=== PATIENT | male | born 1935 | race Caucasian/White ===

== ENCOUNTER 2016-05-08 07:05 | Inpatient (IN) | payer MEDICARE ==
--- NOTE | 2016-05-02 18:09 | Rehab Joint Replacement Pre-Op ---
Rehab Joint Replacement Pre-Op - Pre-Op Visit Reviewed Items Scheduled for Post Op Visit: Yes Scheduled Post Op Visit Date: 05/09/16 (Pt. expresses willingness to be a swingbed pt.) Pre-Op Visit Comment: Pt. reports history of low back pain and spinal stimulator. Pt. has had multiple knee scopes and injections. Pt. lives in a single story home with three steps leading in and hand rails on both sides. Pt. has a walk in shower and grab bar in the bathroom. Pt. has a single point cane and expresses that he wants to borrow a walker from a friend. Pt. lives with who is able to provide support. David Hose/Garment Measurement TKR - Knee High: Yes (David Hose measurements recorded on intake form, please see form for measurements.) Exercise Reviewed: Yes (Pt. was instructed to perform ankle pumps, quad sets, glute sets, heel slides, and hamstring stretches, both post and pre-operatively. ) Stair Climbing: Yes (Pt. was instructed on walker positioning and use when ascending and descending stairs.) Cane/Walker/Crutch Training: Yes (Pt. was shown how to ambulate with single point cane.) Vend Equipment - Cane or Walker and OT Kit: N/A List of Venders in the Area: Yes Shower Chair Transfers: Yes Car Transfers: Yes Bed Transfers: Yes Medical History Forms Issued: No Functional Scale Forms Issued: No
[~2016-05-08 07:05] MED LIST: ACETAMINOPHEN 1000MG/100 ML PREMIX IV ONE; FAMOTIDINE 20MG TABLET PO ONE; MECLIZINE 25 MG TABLET PO ONE; METOCLOPRAMIDE 10 MG TABLET PO ONE; VANCOMYCIN HCL 1,000 MG in 0.9 % SODIUM CHLORIDE 250ML 250 ML IVPB ONE
[2016-05-08] MEDS ORDERED: DIPHENHYDRAMINE HCL 25 MG CAPSULE PO PRN (11:30)
[2016-05-08] MEDS ORDERED: METOCLOPRAMIDE HCL 10 MG/2 ML VIAL IVP PRN (11:30)
[2016-05-08] MEDS ORDERED: ZOLPIDEM TARTRATE 5 MG TABLET PO PRN (11:30)
[2016-05-08] MEDS ORDERED: AL HYDROX/MAG HYDROX 30ML UD PO PRN (11:30)
[2016-05-08] MEDS ORDERED: TRAMADOL HCL 50 MG TABLET PO PRN ×2 (11:30)
[2016-05-08] MEDS ORDERED: ONDANSETRON HCL IV 4 MG/2 ML VIAL IVP PRN (11:30)
[2016-05-08] MEDS ORDERED: MAGNESIUM HYDROXIDE 30 ML UDC PO PRN (11:30)
[2016-05-08] MEDS ORDERED: OXYCODONE HCL 5 MG TABLET PO PRN (11:30)
[2016-05-08] MEDS ORDERED: HYDROMORPHONE HCL 1 MG/ML CPJ IVP PRN (11:30)
[2016-05-08] MEDS: RINGERS SOLUTION,LACTATED 1,000 ML IV SCH ×2 (12:26→20:56)
[2016-05-08] MEDS ORDERED: TRANEXAMIC ACID 1,000 MG in 0.9 % SODIUM CHLORIDE 100ML 100 ML IVPB ONE (13:00)
[2016-05-08] MEDS: ACETAMINOPHEN 1,000 MG/ 100 ML IV SCH ×4 (14:11→20:43)
[2016-05-08] MEDS ORDERED: ALPRAZOLAM 0.25 MG TABLET PO PRN ×2 (14:15→14:16)
[2016-05-08] MEDS ORDERED: BUPIVACAINE 0.25% W/EPI MPF 30ML VIAL IVP ONE (14:23)
[2016-05-08] MEDS ORDERED: ONDANSETRON HCL IV 4 MG/2 ML VIAL IVP ONE (14:23)
[2016-05-08] MEDS ORDERED: BUPIVACAINE LIPOSOME 266MG/20ML VIAL IV ONE (14:23)
[2016-05-08] MEDS ORDERED: HYDROMORPHONE HCL 2 MG/ML VIAL IV ONE ×2 (14:23→15:46)
[2016-05-08] MEDS ORDERED: TRANEXAMIC ACID 1,000 MG/10 ML ML IV ONE (14:23)
[2016-05-08] MEDS ORDERED: LIDOCAINE 2% MDV (20MG/ML) 20ML VIAL IV ONE (15:46)
[2016-05-08] MEDS ORDERED: SEVOFLURANE 250 ML INH ONE (15:46)
[2016-05-08] MEDS ORDERED: PROPOFOL 10 MG/ML VIAL IV ONE (15:46)
--- NOTE | 2016-05-08 16:15 | Rehab Evaluation ---
Patient Information - Patient Information Diagnosis: Right knee OA Ordered Treatment: PT Evaluate and Treat Status: Initial Evaluation Surgery: Yes (R knee TKA) Date of Surgery: 05/08/16 History: Detail (Pt. has a long history of knee pain/wear and tear. Pt. has a history of low back pain and has a spinal stimulator. Pt. believes his left knee is due for surgery soon.) Past Med/Eddie Hx Detail: Detail (Pt. has history of cardiac complication and back surgery, please see additional medical intake forms.) Past Medical/Surgical Hx: PAST MEDICAL/SURGICAL HISTORY Surgery to Affected Area? Yes Recent Surgery? Past Surgical History appy age 3; lysis of adhesions 1968 back x 2; aortic aneurysm 2003 and 2007; bilat cataract sx; rhizotomies; bilat knee scopes, SCS implant back injections; bilat knee scope; spinal cord stimulator implant PMH - Respiratory Hx Respiratory Disorders Yes Hx Bronchitis Yes: yrly PMH - Cardiovascular Hx Cardiovascular Disorders Yes Hx Hypertension Yes: great control Exercise Tolerance Fair Hx of Migraines Yes: X1 years ago Comment: Limited exercise R/T knee;aortic aneurysm repair x's 2 checked every year PMH - Neuro Hx Neurological Disorders No PMH - GI Hx Gastrointestinal Disorders No Hx Weight Loss/Weight Gain Yes: down 25# over 1 year purpusefully PMH - Hx Genitourinary Disorders Yes Hx Bladder Problem Yes: frequency PMH - Endocrine Hx Endocrine Disorders No PMH - Musculoskeletal Hx Musculoskeletal Disorders Yes Hx Arthritis Yes: Osteoarthritis knees, hand and spine Hx Back Injury Yes: age 20 PMH - Psych Hx Psychiatric Problems No PMH - Hematology/Oncology Hx Hematology/Oncology Yes Disorders Hx Bruising Yes: Hx of low platelets 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 lives in a single story home and has three steps leading in and hand rails on both sides. Pt. has a walk in shower and grab bar in the bathroom. Pt. has a front wheeled walker and single point cane. Pt. lives with his who is able to provide support.) Precautions: Tiger, Fall - Time With Patient Total Time Spent With Patient (Min): 50 Treatment Procedures: Detail (Physical Therapy Evaluation Completed. Pt. was left supine with call light available, B IPC, CPM RLE, 4L O2 via nasal canula, and nursing was notified of pt.'s status. Pt. reported pain decrease from 6/10 to 4/10 from start to finish of evaluation.) Subjective Information - Subjective Information Per Patient (Pt. denied SOB, nausea, or feelings of irritability.) Objective Data - Pain Pain Present: Yes Pain Intensity: 6 Pain Scale Used: Numeric (1 - 10) (6/10 VAS) - Mental Status Patient Orientation: Oriented x3 - Visual Perception Appears within normal limits for therapeutic activities - ROM Other (Right knee flexion and extension set at 0 degrees extension and 60 degrees flexion via CPM.) - Strength/Tone Within normal limits (RLE not tested for break testing due to recent surgery. LLE and BUE within functional limits.) - Coordination Appears within normal limits for therapeutic activities - Bed Mobility Needs Assist (Pt. required min assist x1 for bed mobility and positioning to head of bed. PT lifted pt.'s RLE due to pt. inability to perform SLR.) - Transfers Needs Assist (Pt. required min assist x2 with sit to stand and stand to sit transfer. Pt. demonstrated good positioning of the operative LE and hand placement with AD.) - Balance Balance Sitting: Good Balance Standing: Fair (Pt. stood in the bathroom for ~10 minutes with CGA and maintained midline orientation with AD, but easily lost balance with perturbation testing in all directions.) - Sensation Intact - Gait Detail (Pt. ambulated ~10 feet with front wheeled walker and PT provided CGA x1. ) - ADL's/IADL's Detail (Not assessed.) - Special Tests No Therapy Assessment - Therapy Assessment Detail (Pt. presents with LE weakness, LE ROM restriction, antalgic gait, and standing balance impairment secondary to TKA.) Patient Education - Patient Education Teaching Topic: Community Resources, Discharge Instructions (Pt. was instructed on D/C planning and appropriateness for return to home environment versus subacute stay and medical necessity.), Disease Process Response: Verbalize Understanding Teaching Method: Discussion Teaching Recipient: Patient, Family Barriers To Learning: None Problem List - Problem List Physical Therapy Problem List: Detail (1) LE weakness 2) LE ROM impairment 3) Standing balance impairment 4) Antalgic gait 5) Community ambulation not assessed due to pain) Occupational Therapy Problem List: Detail Goals - Goals Physical Therapy Goals: 1) Pt. will ambulate community distances independently with AD for safe ambulation. 2) Pt. will be independent with bed mobility and transfers. 3) Pt. will independently ascend and descend three steps with AD for safe ambulation. 4) Pt. will be independent with home exercise program. 5 ) Pt. will verbalize understanding of precautions and signs of infection. Prognosis - Prognosis Good (Pt. is expected to meet all inpatient goals and return to home environment unless pt. is not found to be medically stable or pain limits his function.) Plan - Plan Physical Therapy Plan: Pt. will be seen 1-2x per day for inpatient PT, starting on date 05-09-16.
[2016-05-08] MEDS: OXYCODONE HCL 5 MG TABLET PO PRN ×2 (17:55→22:00)
[2016-05-08] MEDS ORDERED: VANCOMYCIN HCL 1,000 MG in 0.9 % SODIUM CHLORIDE 250ML 250 ML IVPB ONE (20:20)
[2016-05-08] MEDS: ASPIRIN 325 MG TAB ENTERIC-COATED PO SCH (22:01)
[2016-05-09] MEDS: ACETAMINOPHEN 1,000 MG/ 100 ML IV SCH ×2 (02:29)
[2016-05-09] MEDS: OXYCODONE HCL 5 MG TABLET PO PRN (02:34)
[2016-05-09] MEDS: RINGERS SOLUTION,LACTATED 1,000 ML IV SCH (05:58)
[2016-05-09 06:42] LABS: HEMATOCRIT 40.3 % (42.0-52.0); HEMOGLOBIN 13.2 gm/dl (14.0-18.0); MEAN CELL VOLUME 93.5 fl (81-97); MEAN CORPUSCULAR HEMOGLOBIN 30.6 pg (27-33); MEAN CORPUSCULAR HGB CONC 32.8 g/dl (32-36); MEAN PLATELET VOLUME 12.4 fl (7.4-10.4); PLATELET COUNT 103 K/uL (130-400); RED BLOOD COUNT 4.31 M/uL (4.40-5.70); RED CELL DISTRIBUTION WIDTH 13.7 % (11.5-14.5); WHITE BLOOD COUNT W/O DIFF 7.5 K/uL (4.2-12.2)
[2016-05-09 06:44] LABS: INR 1.03; PROTHROMBIN TIME (PATIENT) 11.6 SECONDS (9.5-12.1)
[2016-05-09] MEDS ORDERED: OXYCODONE/APAP 7.5MG/325MG TABLET PO PRN ×2 (11:30)
[2016-05-09] MEDS ORDERED: HYDROCODONE/APAP 7.5/325MG TABLET PO PRN (11:30)
[2016-05-09] MEDS ORDERED: ACETAMINOPHEN 325 MG TAB PO PRN (11:30)
--- NOTE | 2016-05-09 11:42 | Physical Therapy Tx Note ---
Physical Therapy Tx Note - Treatment Note Tolerated: Good Total Time Spent With Patient: 45 Physical Therapy Tx Note: Detail (Pt up in chair upon arrival; present in room. Approached by re: transition to Swing Bed program, qualifications, requirements, etc. Referred to case management; she spoke w/nrsg to have manager of case come to pt's room when on unit. Pt applied spinal stimulator for therapeutic activities. Pt transferred sit/stand to front-wheeled walker w/SBA , ambulated out in hallway and returned to room (about 76 feet), w/CGA. VCs to extend R LE w/resuming sitting in chair. Performed 2 minutes of heel slides, 10 reps each of ankle pumps, LAQ, isometric hamstrings, seated marching, gluteal sets. Applied PolarPak to R knee, asked family to ensure that call light is within reach of patient if they leave the room. Encouraged patient to sit up through lunch, then rest before afternoon therapy session. Nrsg notified. Spoke w/KEL (manager of case) regarding pt's performance, pt's 's questions re: swing bed program. She will communicate w/therapy after afternoon session to determine how to proceed.) Physical Therapy Problem List: Detail (1) LE weakness 2) LE ROM impairment 3) Standing balance impairment 4) Antalgic gait 5) Community ambulation not assessed due to pain) Physical Therapy Goals: 1) Pt. will ambulate community distances independently with AD for safe ambulation. 2) Pt. will be independent with bed mobility and transfers. 3) Pt. will independently ascend and descend three steps with AD for safe ambulation. 4) Pt. will be independent with home exercise program. 5 ) Pt. will verbalize understanding of precautions and signs of infection. Prognosis: Good Physical Therapy Plan: Pt. will be seen 1-2x per day for inpatient PT, starting on date 05-09-16.
[2016-05-09] MEDS: HYDROCODONE/APAP 7.5/325MG TABLET PO PRN ×2 (12:39→17:51)
[2016-05-09] MEDS: SENNOSIDES/DOCUSATE SODIUM UD CAPSULE PO PRN (12:40)
[2016-05-09] MEDS: ASPIRIN 325 MG TAB ENTERIC-COATED PO SCH ×2 (12:41→22:50)
[2016-05-09] MEDS: HYDROCHLOROTHIAZIDE 12.5 MG CAPSULE PO SCH (12:41)
[2016-05-09] MEDS: LOSARTAN POTASSIUM 25 MG TABLET PO SCH (13:54)
--- NOTE | 2016-05-09 15:11 | Physical Therapy Tx Note ---
Physical Therapy Tx Note - Treatment Note Tolerated: Good (Patient doing much better: has low grade temperature but nursing will watch. Able to tolerate 100 feet of gait with FWW then down and up three steps, wheeled back to room so could check out sit to stand from lower chair.) Total Time Spent With Patient: 30 Physical Therapy Tx Note: Detail (Patient sitting up in chair with friends present and . Sit to stand indepedently from high seated chair with FWW, WBAT then ambulated 100 plus feet into lugo to stairs near nurses station. Steps : three down and three up with rail and FWW, CGA then patient was wheeled back to room in wheelchair so could practice sit to stand from lower chair: independent with same. Left patient with cryocuff and tried to rest leg on stool but uncomfortable, call light, tray table and close by.) Physical Therapy Problem List: Detail (1) LE weakness 2) LE ROM impairment 3) Standing balance impairment 4) Antalgic gait 5) Community ambulation not assessed due to pain) Physical Therapy Goals: 1) Pt. will ambulate community distances independently with AD for safe ambulation. 2) Pt. will be independent with bed mobility and transfers. 3) Pt. will independently ascend and descend three steps with AD for safe ambulation. 4) Pt. will be independent with home exercise program. 5 ) Pt. will verbalize understanding of precautions and signs of infection. Prognosis: Good (Patient will probably go home tomorrow am and have home PT for a time then visit with Dr Onofre re: further PT as OP or not. Has passed all skills and functionally mobile.) Physical Therapy Plan: Pt. will be seen 1-2x per day for inpatient PT, starting on date 05-09-16. Home PT for two weeks then doctor to re-eval if needs OP PT.
[2016-05-10 06:40] LABS: HEMOGLOBIN 12.4 gm/dl (14.0-18.0); MEAN CELL VOLUME 92.9 fl (81-97); MEAN CORPUSCULAR HEMOGLOBIN 30.3 pg (27-33); MEAN CORPUSCULAR HGB CONC 32.6 g/dl (32-36); MEAN PLATELET VOLUME 12.6 fl (7.4-10.4); PLATELET COUNT 113 K/uL (130-400); RED BLOOD COUNT 4.09 M/uL (4.40-5.70); RED CELL DISTRIBUTION WIDTH 13.3 % (11.5-14.5); WHITE BLOOD COUNT W/O DIFF 8.1 K/uL (4.2-12.2)
[2016-05-10 06:47] LABS: INR 1.08; PROTHROMBIN TIME (PATIENT) 12.2 SECONDS (9.5-12.1)
[2016-05-10] MEDS: LOSARTAN POTASSIUM 25 MG TABLET PO SCH (09:06)
[2016-05-10] MEDS: SENNOSIDES/DOCUSATE SODIUM UD CAPSULE PO PRN (09:06)
[2016-05-10] MEDS: HYDROCHLOROTHIAZIDE 12.5 MG CAPSULE PO SCH (09:07)
[2016-05-10] MEDS: ASPIRIN 325 MG TAB ENTERIC-COATED PO SCH (09:07)
--- NOTE | 2016-05-12 10:45 | Operative Note ---
DATE OF SURGERY: 05/08/2016 Surgeon: Reji Onofre D.O. Referring Physician: Philip Sullivan D.O. PREOPERATIVE DIAGNOSIS: Primary osteoarthritis of the right knee. POSTOPERATIVE DIAGNOSIS: Primary osteoarthritis of the right knee. OPERATIVE PROCEDURE: Right total knee arthroplasty. PROCEDURE: This 81-year-old male was taken to the operating room and placed in the supine position on the operating room table. A general anesthetic was administered, and the right lower extremity was elevated, prepped with Hibiclens, and draped in the usual sterile fashion. It was exsanguinated and the tourniquet inflated to 300 mm Hg. All scrub personnel wore personal isolation suits. An anterior longitudinal midline incision was made, followed by a medial peripatellar arthrotomy incision, and intercondylar drill holes made for the intramedullary laminate theresa, and the distal femoral cutting block was set at 9 mm, 60-degree valgus cut, and the wafers of bone were removed. The sagittal jig was fixed at a size 72.5, which seemed to be the appropriate size. The 4-in-1 cutting block was then pinned at 3 degrees of external rotation, and the appropriate cuts were made, and the wafers of bone were removed. We then directed our attention to the proximal tibia, and an extramedullary alignment guide was used to cut the proximal tibial, referencing a 10 mm cut off the lateral tibial plateau; however, because of some bone loss medially, we then took an additional 2 mm of bone. Once the appropriate position of the cutting block was made, the appropriate cuts were made, and the wafer of bone was removed. Remnants of the menisci and osteophytes were removed from the posterior aspect of the joint, and the tibia was sized to a size 83. The stem punch was used. The wound was copiously irrigated with post-lavage lactated Ringer solution. The patella was cut and restored to anatomic height with a 37x8.6 mm patella trial. The remainder of the trials was inserted, and a 10 mm bearing, which seemed to be the appropriate size. The knee was taken through range of motion and excellent stability of the joint was identified, and the knee was found to be stable. The joint was copiously irrigated after all trial components were removed. Exparel was injected into the posteromedial and lateral corners of the joint after all debris was removed from the joint. All bony surfaces were dried. All components were cemented into place, and excess cement removed at the insertion of each component. Initially, the tibial base plate was cemented followed by insertion of the tibial bearing, femoral component, and finally the patella. Once the cement had hardened, the knee was again taken through range of motion and found to be stable. The remainder of the Exparel was injected into the periosteum and joint capsule, the proximal tibia, and distal femur. A drain was placed through a separate stab incision. The arthrotomy incision was subsequently closed with 2-0 Vicryl, subcutaneous tissue closed with 0 Vicryl. The skin was stapled and sterile dressings applied with a Polar Care, and the patient was taken to the recovery room in satisfactory condition. GROSS PATHOLOGY: This patient demonstrated advanced osteoarthritis of the medial compartment, certainly much worse than the x-rays would have indicated with full-thickness articular cartilage loss noted there and on the tibial plateau. The lateral tibial plateau also demonstrated rather advanced degenerative change as well, with grade 2 changes being noted on the lateral femoral condyle and severe grade 2 changes noted at the patella. Final components inserted were a [employer] Bernice Vanguard, a size 72.5 cruciate-retaining femoral component, a size 83 tibial base plate, 10 mm anterior stabilized tibial bearing, and a 37x8.6 mm patella was used. DO JENNIFER Gomez
--- NOTE | 2016-05-12 17:59 | Discharge Summary ---
DATE OF ADMISSION: 05/08/2016 DATE OF DISCHARGE: 05/10/2016 ADMITTING DIAGNOSIS: Osteoarthritis of the right knee. DISCHARGE DIAGNOSIS: Osteoarthritis of the right knee. OPERATIVE PROCEDURE: Elective right total knee arthroplasty. This 81-year-old male was taken to the operating room on 05/08/2016 for elective total knee arthroplasty and tolerating the operative procedure well. The drain was removed the first postoperative day. He was doing extremely well with expected amount of pain. He did not demonstrate any evidence of calf pain and no sign of DVT. He continued to do well with physical therapy and was discharged on 05/10/2016. The patient will have home physical therapy for 2 weeks 3 times a week and was given a prescription for Lipscomb 7.5/325 one or two every 6 hours as necessary for pain and he was given 80. He will take aspirin 325 mg b.i.d. for 2 weeks. He will wear his HAWK hose during the day and remove them at night. Routine wound care instructions were given. He will follow up in the clinic in 2 weeks for reevaluation. Should he have any problems prior to being seen, he was instructed to call my office. DO JENNIFER Gomez
== END 2016-05-10 10:30 | disposition home health service (06) | DRG 470 ==
LOC: MEDSURG 07:05
PROVIDERS: ADMIT Orthopaedic Surgery; ATTEND Orthopaedic Surgery
PROC: 0SRC0J9 Replacement of Right Knee Joint with Synthetic Substitute, Cemented, Open Approach (ICD-10-PCS; principal; 2016-05-08 09:30)
DX: M17.11 Unilateral primary osteoarthritis, right knee (principal); I10 Essential (primary) hypertension
CPT/HCPCS: 36416; 82948; 85025; 85610; 94760; 97110; 97116; 97161; 97530; J1170; J2405; J7050; J7120

== ENCOUNTER 2017-08-26 08:43 | Day surgery (SDC) | payer MEDICARE ==
--- NOTE | 2017-08-26 07:45 | History and Physical Report ---
DATE: 08/26/2017. CHIEF COMPLAINT AND HISTORY OF CHIEF COMPLAINT: This patient presents with a history of a spinal cord stimulator implant placed on 05/31/2014. Although throughout time the system had been helping quite well, more recently there has been battery depletion and electrode failure. After careful review and discussion, it was felt appropriate to leave the leads in place and simply replace the generator with the new, updated WaveWriter generator which has the potential for greater stimulation patterns and more wave control, all ultimately resulting in better pain control through the system. The patient agreed and consented. PAST MEDICAL HISTORY: Hypertension. PAST SURGICAL HISTORY: Aneurysm repair, two lumbar laminectomies, spinal cord stimulator placement. MEDICATIONS ON ADMISSION: To be provided; no blood thinners. ALLERGIES: To be provided. SOCIAL HISTORY: Noncontributory. FAMILY HISTORY: Coronary artery disease, hypertension, cancer. REVIEW OF SYSTEMS: The patient is appropriate and in no acute distress. The remainder of the systems review shows glasses, blood pressure problems, degenerative arthritis, difficulty sleeping. PHYSICAL EXAMINATION: General: Height and weight are unavailable. Vital Signs: Unavailable. HEENT: Within normal limits. Lungs: Clear. Heart: Regular rate and rhythm. Abdomen: Nontender. Musculoskeletal: Examination of the musculoskeletal system shows the generator pouch in the left posterior gluteal margin. The incisional site is intact. The underlying pain pattern is bilateral back, bilateral lower extremity laminectomy. Motor and sensory field function is intact, although there is some mild weakness and sensory abnormalities in the left lower extremity. Ambulation: Assistive device utilized. Neurologic: Cranial nerves are intact. IMPRESSION: 1. POSTLUMBAR LAMINECTOMY SYNDROME, ICD-10 CODE M96.1. 2. LUMBAR RADICULOPATHY, ICD-10 CODE M54.16 AND M54.17. 3. IMPLANTED SPINAL CORD STIMULATOR WITH BATTERY DEPLETION. PLAN: The patient is here for replacement of the internal pulse generator and battery on an outpatient basis. The potential risks, side effects, and complications have all been carefully reviewed and discussed. JOB NUMBER: [id number] cc: Marylou Gamble
[~2017-08-26 08:43] MED LIST changes: +ACETAMINOPHEN 1,000 MG/100 ML BTL IV ONE; -ACETAMINOPHEN 1000MG/100 ML PREMIX IV ONE; +CLINDAMYCIN 600MG/50ML PREMIX 600 MG/50 ML BAG IVPB ONE; -VANCOMYCIN HCL 1,000 MG in 0.9 % SODIUM CHLORIDE 250ML 250 ML IVPB ONE
[2017-08-26] MEDS ORDERED: MORPHINE SULFATE 5 MG/ML PFS IVP ONE (08:44)
[2017-08-26] MEDS ORDERED: PROPOFOL 10 MG/ML VIAL IV ONE (08:44)
[2017-08-26] MEDS ORDERED: BUPIVACAINE 0.5% W/EPI MPF 30 ML VIAL IVP ONE (08:44)
[2017-08-26] MEDS ORDERED: LIDOCAINE 1% MDV (10MG/ML) 20ML VIAL SQ ONE (08:44)
[2017-08-26] MEDS ORDERED: LIDOCAINE 1% W/EPI 1:200,000 MPF 30ML SQ ONE (08:44)
[2017-08-26] MEDS ORDERED: MIDAZOLAM HCL 2MG/2ML VIAL IV ONE (08:44)
--- NOTE | 2017-08-26 16:14 | Operative Note - Ferro ---
DATE OF SURGERY: 08/26/17 PREOPERATIVE DIAGNOSES: 1. POST LUMBAR LAMINECTOMY SYNDROME ICD-10 CODE = M96.1 WITH RADICULOPATHY M54.16 AND M54.17. 2. SPINAL CORD STIMULATOR INTERNAL GENERATOR BATTERY DEPLETION. OPERATION: FLUOROSCOPICALLY-GUIDED INCISION, SUBCUTANEOUS DISSECTION, AND REMOVAL AND REPLACEMENT OF INTERNAL PULSE GENERATOR WITH A Figure 1 WAVEWRITER. SURGEON: LORENA VILLAVICENCIO D.O. ANESTHESIA: LOCAL SEDATION. ANESTHESIA PROVIDER: JULIENNE PINA CRNA INDICATION: This patient presents with a history of intractable post lumbar laminectomy radiculopathy, spinal cord stimulator in place. Although the system has been helping, it has not been controlling his pain. Multiple attempts for reprogramming showed the limitations of the previous system and we were not able to generate the appropriate stimulation patterns to control his pain. He was at that point given the option to remove or replace the generator; he opted to replace the generator. The WaveWriter technology providing more programmability, more waveform possibilities for control of the nervous system. PROCEDURE: Intravenous line, vital sign monitoring, IV sedation, prepped and draped sterile technique, patient position prone. Sterile prep, sterile technique. At the left posterior gluteal margin generator site, skin infiltrated , incision made, and subcutaneous dissection was conducted to the generator pouch. The generator pouch was opened, the generator exteriorized and then from the indwelling leads. Antibiotic irrigation and Bovie for hemostasis. The indwelling leads were then interfaced to the generator and the generator was secured into the pouch with a nonabsorbable suture. After appropriate testing to ensure functionality, the incision was closed Vicryl for fascia, running subcuticular Vicryl for skin. Dermabond closure. He was transported to the Recovery Room stable. No side-effect from the procedure or the sedation. When fully awake and alert, complex programming of the system performed over 20 minutes re-establishing stimulation. He was then discharged to home. DISCHARGE INSTRUCTIONS: 1. Sites remain clean and dry although the Dermabond will allow showering. He cannot sit in water or a tub. 2. Standard medications resumed including the antibiotic, Levaquin, 500 mg once a day for 14 days. 3. The office will contact the patient in 24-48 hours to set up an appointment in 7-10 days to check the incision integrity. Through this period of time, he should keep his activities controlled. All other instructions provided, numbers to contact, problems given. He was then discharged. cc: Dr. Sullivan JOB NUMBER: [id number] MTDD
== END 2017-08-26 11:40 | disposition home or self-care (01) ==
LOC: SUR 08:43
PROVIDERS: ATTEND Pain Medicine Interventional Pain Medicine
DX: M96.1 Postlaminectomy syndrome, not elsewhere classified (principal); M54.16 Radiculopathy, lumbar region; M54.17 Radiculopathy, lumbosacral region; I10 Essential (primary) hypertension
CPT/HCPCS: 63685; 00300; 95972; 85002; J2270; C1820